=== PATIENT | male | born 1985 | race Caucasian/White ===

== ENCOUNTER 2020-12-10 21:09 | Emergency (ER) | payer OTHER, BC ==
[~2020-12-10] VITALS: Ht 175.3 cm; Wt 97.7 kg
[~2020-12-10 21:09] MED LIST: NORCO10T PO; [UNRECOGNIZED DRUG - CODE] PO
[2020-12-10 21:29] VITALS: BP 183/104
[2020-12-10] MEDS ORDERED: SULF1TAB49 PO (23:30)
== END 2020-12-10 23:45 | disposition home or self-care (01) ==
LOC: ER 21:09
DX: L03.115 Cellulitis of right lower limb (principal); Z98.890 Other specified postprocedural states; Z72.0 Tobacco use; Z72.89 Other problems related to lifestyle; Z56.0 Unemployment, unspecified; Z79.899 Other long term (current) drug therapy
CPT/HCPCS: 99283

== ENCOUNTER 2020-12-14 21:46 | Emergency (ER) | payer OTHER, BC ==
[~2020-12-14] VITALS: Ht 175.3 cm; Wt 99.0 kg
[~2020-12-14 21:46] MED LIST changes: +SULF1TAB49 PO
[2020-12-14] MEDS ORDERED: acetaminophen 325mg tablet PO STA (22:25)
[2020-12-14] MEDS ORDERED: normal saline 1000ML IV soln IV ONE (22:25)
--- NOTE | 2020-12-14 22:29 | NUR ---
pt to room, assumed care.
--- NOTE | 2020-12-14 22:31 | NUR ---
pt has cellulitis to right lower extremity. open wound size of dime to right upper courtney with purulent drainage.
[2020-12-14 23:09] LABS: BASOPHILS % (AUTO) 0.3 % (0-1); EOSINOPHILS # (AUTO) 0.1 X10'3 (0-0.9); EOSINOPHILS % (AUTO) 1.1 % (0-6); HEMATOCRIT 42.2 % (42.0-52.0); HEMOGLOBIN 14.7 g/dl (14.0-17.9); LYMPHOCYTES # (AUTO) 1.6 X10'3 (1.1-4.8); LYMPHOCYTES % (AUTO) 16.3 % (21-51); MEAN CORPUSCULAR HEMOGLOBIN 32.3 PG (27.0-31.0); MEAN CORPUSCULAR HGB CONC 34.8 g/dL (33.0-36.5); MEAN CORPUSCULAR VOLUME 92.9 FL (78-98); MEAN PLATELET VOLUME 6.8 FL (7.4-10.4); MONOCYTES # (AUTO) 0.6 X10'3 (0-0.9); MONOCYTES % (AUTO) 5.6 % (2-12); NEUTROPHILS # (AUTO) 7.7 X10'3 (1.8-7.7); NEUTROPHILS % (AUTO) 76.7 % (42-75); PLATELET COUNT 226 X10'3 (140-440); RED BLOOD COUNT 4.55 X10'6 (4.70-6.10); RED CELL DISTRIBUTION WIDTH 13.1 % (11.5-14.5)
[2020-12-14 23:15] LABS: ALANINE AMINOTRANSFERASE 45 U/L (12-78); ALBUMIN 2.9 G/DL (3.4-5.0); ALBUMIN/GLOBULIN RATIO 0.6 (1.1-1.5); ALKALINE PHOSPHATASE 150 IU/L (46-116); ANION GAP 11 (8-16); ASPARTATE AMINO TRANSFERASE 20 U/L (10-37); BILIRUBIN,TOTAL 0.2 MG/DL (0.1-1.0); BLOOD UREA NITROGEN 17 MG/DL (7-18); BUN/CREATININE RATIO 16.2 (5.4-32.0); CHLORIDE 104 MMOL/L (99-107); CREATININE 1.05 MG/DL (0.60-1.10); GLUCOSE 113 MG/DL (70-104); MAGNESIUM 2.2 MG/DL (1.5-2.4); POTASSIUM 4.2 MMOL/L (3.5-5.1); SODIUM 140 MMOL/L (135-145); TOTAL CARBON DIOXIDE 25.1 MMOL/L (24-32); TOTAL PROTEIN 7.5 G/DL (6.4-8.2); eGFR 80 ML/MIN
[2020-12-14] MEDS ORDERED: DOXYCYCLINE 100MG CAPSULE PO STA (23:40)
[2020-12-14] MEDS ORDERED: DOXY100C43 PO (23:41)
[2020-12-14 23:47] VITALS: BP 196/85
== END 2020-12-14 23:53 | disposition home or self-care (01) ==
LOC: ER 21:46
DX: L03.115 Cellulitis of right lower limb (principal); Z79.2 Long term (current) use of antibiotics; Z79.899 Other long term (current) drug therapy; Z72.89 Other problems related to lifestyle; Z56.0 Unemployment, unspecified
CPT/HCPCS: 36415; 80053; 83605; 83735; 84145; 85025; 87040; 93971; 96360; 99284; J7030

== ENCOUNTER 2023-01-19 11:33 | Emergency (ER) | payer BC, OTHER ==
[~2023-01-19] VITALS: Ht 170.2 cm; Wt 100.0 kg
[~2023-01-19 11:33] MED LIST changes: -SULF1TAB49 PO; -[UNRECOGNIZED DRUG - CODE] PO
[2023-01-19 11:46] VITALS: BP 156/124
[2023-01-19] MEDS ORDERED: DOXYCYCLINE 100MG CAPSULE PO STA (12:34)
[2023-01-19] MEDS ORDERED: sulfamethoxazole/trimethoprim DS (800/160mg) tablet PO ONE (12:35)
[2023-01-19] MEDS ORDERED: LIDOcaine 1% 30ml preserv. free vial IJ ONE (12:35)
[2023-01-19] MEDS ORDERED: DOXY-1 PO (13:28)
[2023-01-19] MEDS ORDERED: SULF1TAB49 PO (13:28)
== END 2023-01-19 13:37 | disposition home or self-care (01) ==
LOC: ER 11:34
DX: L03.211 Cellulitis of face (principal); Z56.0 Unemployment, unspecified
CPT/HCPCS: 10060; 99283